=== PATIENT | male | born 1950 | race Caucasian/White ===

== ENCOUNTER 2020-08-29 08:00 | Outpatient (CLI) | payer MEDICARE, OTHER | END 2020-08-29 23:59 | disposition home or self-care (01) | LOC: LAB.S 08:00 | PROVIDERS: ATTEND Emergency Medicine | DX: J02.9 Acute pharyngitis, unspecified (principal) ==

== ENCOUNTER 2021-03-31 17:30 | Emergency (ER) | payer MEDICARE, OTHER ==
[2021-03-31] MEDS ORDERED: BUPIVACAINE 0.5% PF 10 ML VIAL SUBQ STA (17:45)
[2021-03-31] MEDS ORDERED: AMOX/CLAV 875 MG/125 MG TABLET PO STA (17:45)
--- NOTE | 2021-03-31 17:46 | ED Physician Documentation ---
PD HPI HEENT - Stated complaint Stated Complaint: LEFT CHEEK SWELLING & JAW PX - Chief complaint Chief Complaint: Heent - History obtained from History obtained from: Patient - Additional information Additional information: 70-year-old gentleman with well-controlled type 2 diabetes has had about 4 days of increasing pain and swelling related to left mandibular molars with the swelling to starting today. No fevers. Review of Systems Constitutional: denies: Fever, Chills Nose: reports: Reviewed and negative Throat: reports: Reviewed and negative Cardiac: reports: Reviewed and negative PD PAST MEDICAL HISTORY - Present Medications Home Medications: Ambulatory Orders Medication Instructions Recorded Confirmed Amox/Clav 875/125 [Augmentin] 1 each PO Q12H #20 tablet 03/31/21 HYDROcod/ACETAM 5/325 [[place] 5/325] 1 - 2 tab PO Q6H PRN #15 tablet 03/31/21 - Allergies Allergies/Adverse Reactions: Allergies Allergy/AdvReac Type Severity Reaction Status Date / Time No Known Drug Allergies Allergy Verified 03/31/21 17:38 PD ED PE NORMAL - Vitals Vital signs reviewed: Yes - General General: Alert and oriented X 3, No acute distress - HEENT HEENT: PERRL, EOMI, Other (A reactive gingival abscess lateral to the left mandibular molars with moderate overlying facial swelling but no trismus or sublingual edema.) - Neuro Neuro: Alert and oriented X 3, Normal speech Results - Vitals Vitals: Vital Signs - 24 hr 03/31/21 03/31/21 17:34 18:28 Temperature 36.6 C 37.5 C Heart Rate 88 124 H Respiratory 15 20 Rate Blood Pressure 168/74 H 138/74 H O2 Saturation 99 100 Oxygen O2 Source Room air Procedures - General procedure General procedure: Left gingival/dental abscess drainage: An inferior alveolar block was done with 0.5% Marcaine in standard fashion with excellent anesthesia. After an appropriate amount of time the gingival abscess was accessed with a #11 blade with a tolentino of pus and deloculated with hemostats and the patient tolerated well. Departure - Departure Disposition: 01 Home, Self Care Clinical Impression: Dental abscess Condition: Good Record reviewed to determine appropriate education?: Yes Instructions: ED Dental Abscess Facial Cellulitis Prescriptions: Amox/Clav 875/125 [Augmentin] 1 each PO Q12H #20 tablet HYDROcod/ACETAM 5/325 [[place] 5/325] 1 - 2 tab PO Q6H PRN #15 tablet PRN Reason: Pain Comments: I sent your prescriptions electronically to [facility] in [place]. It is very important that you follow-up with a dentist. When it comes to dental problems like yours, the emergency department can only offer a short-term solution to your long-term problem. A couple of low cost options for dental care include: [facility] in [place], calls [phone] for an appointment Or [facility] in [place], call [phone] for an appointment. I am prescribing a short course of narcotic pain medication for you. These are potentially dangerous and addictive medications that should be used carefully. These medications may constipate you. Take an ijbt-ovc-ypcjxnn stool softener (docusate) twice daily with plenty of water while taking these medications. If you go 24 hours without a bowel movement, take ypbg-gbz-gxwigik miralax, per package instructions. Do not drink or drive while taking these medications. If you received narcotic or sedating medications while in the emergency department, do not drive for 24 hours. Store this medication in a safe, secure place and out of reach of children. It is a violation of federal law to give or sell this medication to another person or to use in a manner other than prescribed. The ED will not refill narcotic prescriptions, including prescriptions lost or stolen. To dispose of unwanted medications: 1. [facility] at [address] in [place] has a medication drop box. They accept prescription medications (in pill form) Friday through Friday 9:00 a.m. to 5:00 p.m. 2. [facility] accepts prescription medications (in pill form only) for disposal year round. Call for more information. 3. Contact the [facility] for the next [facility] sponsored prescription drug collection event. , [phone], or [phone]; Note that many narcotic pain relievers also contain Tylenol/acetaminophen. Please ensure that your total dose of acetaminophen from all sources does not exceed 3 g (3000 mg) per day. Discharge Date/Time: 03/31/21 18:36
[2021-03-31] MEDS ORDERED: HYDROcod/ACET 5/325 Prepack 4 PO STA (18:14)
[2021-03-31 18:30] VITALS: BP 138/74
== END 2021-03-31 18:36 | disposition home or self-care (01) ==
LOC: ED 17:30
DX: K04.7 Periapical abscess without sinus (principal); E11.9 Type 2 diabetes mellitus without complications
CPT/HCPCS: 41800; 99282; A9270